=== PATIENT | female | born 2000 | race African-American/Black ===

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

== ENCOUNTER 2025-07-06 10:29 | Outpatient (CLI) | payer OTHER, SELFPAY ==
--- OUTSIDE RECORDS SUMMARY | 2025-07-06 12:16 | XMS_ITS | Clinical Summary ---
Author Organization [facility] [employer] Address [address] [place] [address] Care Team Providers Care Adaptive Physical Educator Name Role Phone Abi Valle MD Unavailable [phone] Siobhan Stanley MD Primary Care Provider [phone] Kelli Alcantara MD Unavailable [phone] Source Comments [facility] [employer],non-owned Affiliates and Associated Physician Practices is amultiple site organization consisting of ambulatory clinics and hospital sitesin [place], [place], [place] and [place]. This disclosure is being madepursuant to the Care Everywhere program and may not contain all information available regarding this patient. Last updated 18.[facility] [employer] Allergies No known active allergies Medications * Be aware that medications may not be up to date on this document. Alwaysverify current medications with the patient. acetaminophen-co deine (TYLENOL #3) 300-30 MG tablet Take 1 Tab by mouth every 6 hours as needed for Pain 20 Tab 0 07/12/2015 Active oxyCODONE-acetam inophen (PERCOCET) 5-325 MG tablet Take 1 (one) tablet by mouth every 6 hours as needed for Pain 10 tablet 02/27/2021 Active Active Problems Patient Care Coordination No te Formatting of this note migh t be different from the original. Primary Care Provider: Roxy Boyle MD [address] [place] [address] Problem Noted Date Diagnosed Date Left breast mass 02/07/2021 Dislocation of lacrimal gland 07/12/2015 Family History Medical History Relation Name Comments Cancer - Breast Maternal Grandmother Cancer - Ovarian Maternal Grandmother Anesthesia Reaction Neg Hx Relation Name Status Comments Maternal Grandmother Alive Social History Tobacco Use Types Packs/Day Years Used Date Smoking Tobacco: Never Smokeless Tobacco: Never Alcohol Use Standard Drinks/Week Comments No 0 (1 standard drink = 0.6 oz pur e alcohol) Comments No Sex and Gender Information Value Date Recorded Sex Assigned at Not on file Legal Sex Female 11:39 AM CDT Gender Identity Not on file Sexual Orientation Not on file Last Filed Vital Signs Vital Sign Reading Time Taken Comments Blood Pressure 119/69 03/21/2021 10:22 AM CDT Pulse 75 03/21/2021 10:22 AM CDT Temperature 36.4 C (97.5 F) 02/27/2021 11:58 AM CDT Respiratory Rate 23 02/27/2021 12:30 PM CDT Oxygen Saturation 100% 02/27/2021 12:30 PM CDT Inhaled Oxygen Concentration - - Weight 72.6 kg (160 lb) 03/21/2021 10:22 AM CDT Height 167.6 cm (5' 6) 03/21/2021 10:22 AM CDT Body Mass Index 25.82 03/21/2021 10:22 AM CDT Plan of Treatment Health Maintenance Due Date Last Done Comments HIV SCREENING 2016 HPV VACCINE (1 - 3-dose series) 2016 CHLAMYDIA/GONORRHEA SCREENING 2017 HEPATITIS C SCREENING 03/27/2019 DTAP/TDAP/TD VACCINES (1 - Tdap) 2020 HEPATITIS B VACCINE (1 of 3 - 19+ 3-dose series) 2020 DEPRESSION SCREENING 09/23/2024 COVID-19 VACCINE (1 - 2023-2 5 season) 2025 INFLUENZA VACCINE (#1) 2025 ZOSTER VACCINE (1 of 2) 2051 HIB VACCINE Aged Out No longer eligi ble based on patient's age to complete this topic MENINGOCOCCAL (Group B) VACC INE SHARED DECISION-MAKING Aged Out No longer eligibl e based on patient's age to complete this topic MENINGOCOCCAL GROUPS A/C/Y/W VACCINE Aged Out No longer eligible b ased on patient's age to complete this topic PNEUMOCOCCAL VACCINE Aged Out No long er eligible based on patient's age to complete this topic Additional Health Concerns Infection Onset Date Last 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 Care Teams Adaptive Physical Educator Relationship Specialty Start Date End Date Siobhan Stanley MD [address] [facility] [address] [address] [place] [address] PCP - General Pediatrics 03/21/21 Abi Valle MD Real Estate Salesperson Obstetrics and Gynecology 02/16/21 Kelli Alcantara MD [address] [place] [address] [place] [id number] Surgeon Surgical Oncology 03/21/21
--- OUTSIDE RECORDS SUMMARY | 2025-07-06 12:16 | XMS_ITS | Clinical Summary ---
Author Organization [facility] Address [address] [place] [address] Care Team Providers Care Remnant Sorter Name Role Phone Siobhan Stanley MD Primary Care Provider [phone] Allergies No known active allergies Medications * This document contains information received from the source organization and may not represent a complete record from that organization. 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 Immunizations Immunization Administration Dates Next Due COVID-19 mRNA (WorldAPP) 0.3 m L (30 mcg) vaccine (12 years and up) 08/03/2024 Influenza, Trivalent, Cell C ulture-based MDCK, Preservative Free, Antibiotic Free, Intramuscular 08/03/2024 Surgical History Surgery Date Site/Laterality Comments EYE SURGERY Family History Medical History Relation Name Comments No Known Problems Father No Known Problems Mother Relation Name Status Comments Father Mother Social History Tobacco Use Types Packs/Day Years Used Date Smoking Tobacco: Never Smokeless Tobacco: Never Personal Safety Answer Date Recorded Have you ever been in or are you currently in a harmful physical or emotional relationship or is someone making you feel afraid or unsafe? Denies 09/03/2024 Comments Unknown Sex and Gender Information Value Date Recorded Sex Assigned at Not on file Legal Sex Female 3:34 AM SUBSCRIPTION CLERK Gender Identity Female 06/04/2018 7:01 PM CDT Sexual Orientation Not on file Obstetrics History Last Filed Vital Signs Vital Sign Reading Time Taken Comments Blood Pressure 129/88 09/03/2024 6:03 PM SUBSCRIPTION CLERK Pulse 78 09/03/2024 6:03 PM SUBSCRIPTION CLERK Temperature 37.1 C (98.8 F) 09/03/2024 6:03 PM SUBSCRIPTION CLERK Respiratory Rate 18 09/03/2024 6:03 PM SUBSCRIPTION CLERK Oxygen Saturation 100% 09/03/2024 6:03 PM SUBSCRIPTION CLERK Inhaled Oxygen Concentration - - Weight 59.9 kg (132 lb) 09/03/2024 6:03 PM SUBSCRIPTION CLERK Height 165.1 cm (5' 5) 09/03/2024 6:03 PM SUBSCRIPTION CLERK Body Mass Index 21.97 09/03/2024 6:03 PM SUBSCRIPTION CLERK Plan of Treatment Health Maintenance Due Date Last Done Comments Cervical Cancer Screening 2001 Depression Screening 2001 Hepatitis C Screening 2001 Regular Well Visit/Exam 18-64 2019 Influenza Vaccine (#1) 2025 , 07/25/2017, 10/24/2011, Additional history exists DTaP/Tdap/Td Vaccine (8 - Td or Tdap) 04/15/2034 04/15/2024, 04/15/2012, 05/17/2006, Additional history exists Hepatitis B Screening Completed 05/18/2002 , 2001, 2001 Pneumococcal vaccine <65 Completed 002, 2001, 2001, Additional history exists Varicella Vaccines Completed 04/15/2012, 05/18/2002 HPV Vaccines Completed 12/02/2017, 10/2016, 05/31/2017 Covid-19 Vaccine Completed 08/03/2024, , 02/03/2021, Additional history exists Insurance PPO [facility] Address: [address] [address] [place] [address] [facility] H[facility]/PPO [place] [address] Care Teams Remnant Sorter Relationship Specialty Start Date End Date Siobhan Stanley MD [address] [address] PCP - General Pediatrics 06/04/18
--- OUTSIDE RECORDS SUMMARY | 2025-07-06 12:16 | XMS_ITS | Patient Health Record ---
Author Organization [facility] Address [address] [facility] [address] [place] [address] Care Team Providers Care It Service Manager Name Role Phone Martha Yue Unavailable [phone] Rashmi Florence MD Unavailable Unavailable Reason For Referral Reason Never feels well res edel even after 8 hours Feels fatigued throughout the day Family history of narcolepsy Diagnosis 1 Major depressive dis order, single episode, severe without psychotic features (F32.2) Referral Organization [facility] [employer] [facility] Referring Provider First Name Yue Referring Provider Last Name Martha Referred Provider Specialty Sleep Medici ne Referral Priority Routine Social History Tobacco Use: Social History Observation Description Date Details (start date - stop date) Never Smoker NA - NA Sex Assigned At : Social History Observation Description Sex Assigned At Female Social History Miscellaneous: Social Info Question Answer Notes Advance Care Planning Are you your own decision-maker Yes Do you have Power of [facility] Operator for Health or [facility]? No Safety issues: Are there any firearms in the house? No Social History Social Info Question Answer Notes Household: Marital Status: Single Number of Adults in household: 2 Number of Children in Household: 0 Level of Education: Finished College Drug/Alcohol: Social Info Question Answer Notes Drugs Have you used drugs other than those for medical reasons in the past 12 months? Yes Methamphetamine? No Crack? No LSD? No Ecstacy? No Prescription opiates? No Marijuana? Yes Ketamine? No PCP? No Is there a minor (18 years or younger) at risk at home? No Are you still using? Yes Do you want treatment? No AUDIT-C (Standard) Did you have a drink containing alc ohol in the past year? No How often did you have six or more drinks on one occasion in the past year? Never (0 point) How many drinks did you have on a typical day when you were drinking in the past year? 1 or 2 drinks (0 point) How often did you have a drink containing alcohol in the past year? 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.2) Active confirmed Problem Mild recurrent major depression (96698101) Major depressive disorder, recurrent, mild (F33.0) Active confirmed Problem Generalized anxiety disorder (39802982) Generalized anxiety disorder (F41.1) Active confirmed Encounters Encounter Location Date Provider Diagnosis [facility] [address] [place] [address] 11/04/2024 Yue Hinderliter Generalized anxiety disorder F41.1 and Major depressive disorder, single episode, severe without psychotic features F32.2 [facility] [address] [place] [address] 11/11/2024 Yue Hinderliter Major depressive disorder, single episode, severe without psychotic features F32.2 and Generalized anxiety disorder F41.1 [facility] [address] [place] [address] 11/18/2024 Yue Hinderliter Major depressive disorder, single episode, severe without psychotic features F32.2 and Generalized anxiety disorder F41.1 [facility] [address] [place] [address] 11/27/2024 Yue Hinderliter Major depressive disorder, single episode, severe without psychotic features F32.2 and Generalized anxiety disorder F41.1 [facility] [address] [place] [address] 12/08/2024 Yue Hinderliter Major depressive disorder, single episode, severe without psychotic features F32.2 ; Generalized anxiety disorder F41.1 and Encounter for screening for depression Z13.31 [facility], [facility] [address] [place] [address] 12/17/2024 Yue Hinderliter Major depressive disorder, single episode, severe without psychotic features F32.2 ; Generalized anxiety disorder F41.1 and Encounter for screening for depression Z13.31 [facility], [facility] [address] [place] [address] 12/25/2024 Yue Hinderliter Major depressive disorder, single episode, severe without psychotic features F32.2 ; Generalized anxiety disorder F41.1 and Encounter for screening for depression Z13.31 [facility], [facility] [address] [place] [address] 01/08/2025 Yue Hinderliter Major depressive disorder, single episode, severe without psychotic features F32.2 ; Generalized anxiety disorder F41.1 and Encounter for screening for depression Z13.31 [facility] [address] [place] [address] 01/22/2025 Yue Hinderliter Major depressive disorder, single episode, severe without psychotic features F32.2 ; Generalized anxiety disorder F41.1 and Encounter for screening for depression Z13.31 [id number] [address] [place] [address] 02/12/2025 Yue Hinderliter Major depressive disorder, single episode, severe without psychotic features F32.2 ; Generalized anxiety disorder F41.1 and Encounter for screening for depression Z13.31 [employer], [facility] [address] [place] [address] 04/07/2025 Yue Hinderliter Major depressive disorder, single episode, severe without psychotic features F32.2 ; Generalized anxiety disorder F41.1 and Encounter for screening for depression Z13.31 [employer], [employer] [place] [address] 05/06/2025 Yue Hinderliter Major depressive disorder, recurrent, mild F33.0 ; Generalized anxiety disorder F41.1 and Cannabis use, unspecified, uncomplicated F12.90 [facility], [facility] [address] [place] [address] 06/18/2025 Yue Addisonmai Generalized anxiety disorder F41.1 and Major depressive disorder, recurrent, mild F33.0 [facility] [address] [place] [address] 06/09/2025 Yuebobby Addisonmai [facility] [address] [place] [address] 05/06/2025 Yue Azaelmai [facility] [address] [place] [address] 05/21/2025 Yuebobby Addisonmai [facility] [address] [place] [address] 06/18/2025 Yuebobby Addisonmai Assessments Encounter Date Diagnosis (ICD Code) Assessment Notes Treatment Notes Treatment Clinical Notes Section Notes 11/04/2024 Major depressive disorder, single episode, severe without psychotic features (ICD-10 - F32.2) Marital Status: Single Living Arrangement: roommate, coexist Support System: mom and dad, high school friends still in the area, college friends that are further away, some extended family, siblings Highest Level of Education: Completed college Employment Status: Research orthodontic technician assistant History: Denied Legal History: Denied Family History of MH/ORIN: ADHD. Narcolepsy Physical Medical Conditions: Denied Spiritual Beliefs: confusing but yes. I was raised Caodaism but more so spiritual now. Suicidal Ideation/Self Harm: Denied Homicidal Ideation: Denied Access to means (firearms etc): Denied Chief Complaint: I've been going through a lot of things recently. A lot of things happening in different relationships. Mom is in middle of divorce with ajay. Anxiety: Possibly panic attacks. Uncontrollably crying, feeling stuck, racing heart, tightness in chest, difficulty breathing, feeling like head is going to explode, headaches after the fact, lightheadedness. Racing thoughts. Ruminating thoughts. Annoyed, snippy with others, not anger. Typically does not engage in impulsive behaviors however she noted that recently she impulsively had a sexual encounter with a stranger. She noted that he removed the condom without her consent and is now scheduled for and STI testing. Depression: Feels abandoned or not cared for by people she cares for. Difficulty letting new people in. Trying to date but also keeping self at a distance. Isolating self from others. Feels she cares too much about people. Low energy and low motivation. Obsessions/Compulsi ons: Denied Psychosis: Denied Sleep: Used to sleep a lot, has had a more consistent schedule with her job. Waking up throughout the night, typically around 1-2am consistently. Can fall back asleep quickly. History of nightmares, none in the past month. Average of 8 hours of sleep a night. Has never felt well rested. Never had a sleep study done. Appetite: On and off. Was having stomach issues at the end of 2023. Lost 30 pounds in short period of time. Now feels her appetite is better. Trauma: Substance Use (type, last use, amount, frequency, withdrawal symptoms): Some alcohol. Marijuana, usually smoking, edibles rarely. Smoking 4 times a week usually only at night. Gambling/Other Addictive Behaviors: Denied ADLs (Hygiene, Chores, Cooking, Shopping): Feels exhausted and just wants to sit and do nothing. Things get put off. Interests/Skills/Ho bbies: Used to read a lot of fiction, played sports. Currently watches TV shows, spending time with friends. Scroll on [employer] a lot. Goal(s) for Therapy: To just feel better. Coping strategies to not feel so low. Assessment and Plan: Anxiety and Panic Attacks Teach and practice coping strategies for anxiety, including TIP (Temperature, Intense exercise, Paced breathing, and Paired muscle relaxation). Encourage the patient to practice these skills for 2 to 5 minutes daily. Monitor progress in weekly sessions and adjust treatment as needed. Depression and Low Motivation Work on increasing positive emotions and motivation through cognitive-behaviora l therapy techniques. Assess the need for medication in future sessions if symptoms persist. Sleep Disturbance Monitor sleep patterns and consider a sleep study if the issue persists. Discuss sleep hygiene and relaxation techniques to improve sleep quality. Attachment and Relationship Issues Explore attachment styles and work on developing a more secure attachment through therapy. Address the impact of past relationships and family dynamics on the patient's attachment style. Substance Use Assess the impact of marijuana use on the patient's mental health and discuss potential risks and benefits. Monitor substance use during therapy sessions. Coping with Life Stressors Utilize cognitive-behaviora l therapy techniques to help the patient develop healthy coping strategies for managing stress. Encourage open communication about stressors during therapy sessions. Sexual Health and Boundaries Address healthy sexuality, consent, and boundaries in relationships. Support the patient in establishing and maintaining healthy boundaries in future relationships. Follow up about results of and STI testing. Follow-up: Schedule weekly therapy sessions to monitor progress, discuss coping strategies, and address any new concerns or issues that arise. Adjust treatment plan as needed based on the patient's progress and needs. 11/04/2024 Generalized anxiety disorder (ICD-10 - F41.1) Marital Status: Single Living Arrangement: roommate, coexist Support System: mom and dad, high school friends still in the area, college friends that are further away, some extended family, siblings Highest Level of Education: Completed college Employment Status: Research orthodontic technician assistant History: Denied Legal History: Denied Family History of MH/ORIN: ADHD. Narcolepsy Physical Medical Conditions: Denied Spiritual Beliefs: confusing but yes. I was raised Caodaism but more so spiritual now. Suicidal Ideation/Self Harm: Denied Homicidal Ideation: Denied Access to means (firearms etc): Denied Chief Complaint: I've been going through a lot of things recently. A lot of things happening in different relationships. Mom is in middle of divorce with ajay. Anxiety: Possibly panic attacks. Uncontrollably crying, feeling stuck, racing heart, tightness in chest, difficulty breathing, feeling like head is going to explode, headaches after the fact, lightheadedness. Racing thoughts. Ruminating thoughts. Annoyed, snippy with others, not anger. Typically does not engage in impulsive behaviors however she noted that recently she impulsively had a sexual encounter with a stranger. She noted that he removed the condom without her consent and is now scheduled for and STI testing. Depression: Feels abandoned or not cared for by people she cares for. Difficulty letting new people in. Trying to date but also keeping self at a distance. Isolating self from others. Feels she cares too much about people. Low energy and low motivation. Obsessions/Compulsi ons: Denied Psychosis: Denied Sleep: Used to sleep a lot, has had a more consistent schedule with her job. Waking up throughout the night, typically around 1-2am consistently. Can fall back asleep quickly. History of nightmares, none in the past month. Average of 8 hours of sleep a night. Has never felt well rested. Never had a sleep study done. Appetite: On and off. Was having stomach issues at the end of 2023. Lost 30 pounds in short period of time. Now feels her appetite is better. Trauma: Substance Use (type, last use, amount, frequency, withdrawal symptoms): Some alcohol. Marijuana, usually smoking, edibles rarely. Smoking 4 times a week usually only at night. Gambling/Other Addictive Behaviors: Denied ADLs (Hygiene, Chores, Cooking, Shopping): Feels exhausted and just wants to sit and do nothing. Things get put off. Interests/Skills/Ho bbies: Used to read a lot of fiction, played sports. Currently watches TV shows, spending time with friends. Scroll on [employer] a lot. Goal(s) for Therapy: To just feel better. Coping strategies to not feel so low. Assessment and Plan: Anxiety and Panic Attacks Teach and practice coping strategies for anxiety, including TIP (Temperature, Intense exercise, Paced breathing, and Paired muscle relaxation). Encourage the patient to practice these skills for 2 to 5 minutes daily. Monitor progress in weekly sessions and adjust treatment as needed. Depression and Low Motivation Work on increasing positive emotions and motivation through cognitive-behaviora l therapy techniques. Assess the need for medication in future sessions if symptoms persist. Sleep Disturbance Monitor sleep patterns and consider a sleep study if the issue persists. Discuss sleep hygiene and relaxation techniques to improve sleep quality. Attachment and Relationship Issues Explore attachment styles and work on developing a more secure attachment through therapy. Address the impact of past relationships and family dynamics on the patient's attachment style. Substance Use Assess the impact of marijuana use on the patient's mental health and discuss potential risks and benefits. Monitor substance use during therapy sessions. Coping with Life Stressors Utilize cognitive-behaviora l therapy techniques to help the patient develop healthy coping strategies for managing stress. Encourage open communication about stressors during therapy sessions. Sexual Health and Boundaries Address healthy sexuality, consent, and boundaries in relationships. Support the patient in establishing and maintaining healthy boundaries in future relationships. Follow up about results of and STI testing. Follow-up: Schedule weekly therapy sessions to monitor progress, discuss coping strategies, and address any new concerns or issues that arise. Adjust treatment plan as needed based on the patient's progress and needs. 11/11/2024 Major depressive disorder, single episode, severe without psychotic features (ICD-10 - F32.2) Assessment and Plan: Anxiety and Panic Attacks The patient experienced an anxiety attack following distressing news, marking the first occurrence in several months. The patient has been recommended anxiety medication (potentially sertraline) by their primary care physician. Plan: a. Encourage the patient to commence the prescribed anxiety medication and observe its impact. b. Persist in identifying and practicing coping mechanisms, including mindfulness exercises (e.g., leaves on a stream) and acceptance strategies. c. Arrange consistent follow-up meetings to assess progress and modify the treatment plan as necessary. Relationship and Family Stressors The patient is navigating the aftermath of a recent breakup and ongoing familial challenges, notably a strained relationship with their stepfather and worries regarding their siblings. Plan: a. Support the patient in processing their feelings and thoughts concerning these stressors during therapy sessions. b. Aid the patient in establishing healthy boundaries and communication methods with family members. c. Examine the patient's support network and motivate them to seek additional support from friends and family. Career Uncertainty The patient expresses dissatisfaction with their current employment and is contemplating various healthcare career options, including nursing or becoming a physician's orthodontic technician assistant. Plan: a. Guide the patient in reflecting on their values, interests, and career aspirations. b. Encourage the patient to investigate diverse career paths and collect information on requirements, application processes, and job prospects. c. Assist the patient in formulating a strategy to achieve their career objectives, considering potential obstacles such as housing and achieving a work-life balance. Coping with Adult Life Stressors The patient feels overwhelmed by adult life responsibilities and challenges, including achieving financial stability and managing multiple stressors. Plan: a. Assist the patient in identifying and prioritizing their stressors and devising a strategy to tackle them. b. Instruct the patient in stress management techniques, including time management, problem-solving, and self-care practices. c. Encourage the patient to strive for a balanced work-life dynamic and to seek support from friends, family, and professionals when necessary. 11/11/2024 Generalized anxiety disorder (ICD-10 - F41.1) Assessment and Plan: Anxiety and Panic Attacks The patient experienced an anxiety attack following distressing news, marking the first occurrence in several months. The patient has been recommended anxiety medication (potentially sertraline) by their primary care physician. Plan: a. Encourage the patient to commence the prescribed anxiety medication and observe its impact. b. Persist in identifying and practicing coping mechanisms, including mindfulness exercises (e.g., leaves on a stream) and acceptance strategies. c. Arrange consistent follow-up meetings to assess progress and modify the treatment plan as necessary. Relationship and Family Stressors The patient is navigating the aftermath of a recent breakup and ongoing familial challenges, notably a strained relationship with their stepfather and worries regarding their siblings. Plan: a. Support the patient in processing their feelings and thoughts concerning these stressors during therapy sessions. b. Aid the patient in establishing healthy boundaries and communication methods with family members. c. Examine the patient's support network and motivate them to seek additional support from friends and family. Career Uncertainty The patient expresses dissatisfaction with their current employment and is contemplating various healthcare career options, including nursing or becoming a physician's orthodontic technician assistant. Plan: a. Guide the patient in reflecting on their values, interests, and career aspirations. b. Encourage the patient to investigate diverse career paths and collect information on requirements, application processes, and job prospects. c. Assist the patient in formulating a strategy to achieve their career objectives, considering potential obstacles such as housing and achieving a work-life balance. Coping with Adult Life Stressors The patient feels overwhelmed by adult life responsibilities and challenges, including achieving financial stability and managing multiple stressors. Plan: a. Assist the patient in identifying and prioritizing their stressors and devising a strategy to tackle them. b. Instruct the patient in stress management techniques, including time management, problem-solving, and self-care practices. c. Encourage the patient to strive for a balanced work-life dynamic and to seek support from friends, family, and professionals when necessary. 11/18/2024 Major depressive disorder, single episode, severe without psychotic features (ICD-10 - F32.2) Assessment and Plan: Housing and Financial Stress The patient is experiencing stress related to their housing situation, including the ending of their lease and potential future living arrangements. Concerns are also present regarding the financial aspects of housing and utilities. Plan: Encourage the patient to explore various housing options and consider the advantages and disadvantages of each. Suggest discussing utility payments with their roommate to reach a mutual understanding and agreement. Recommend considering seeking financial advice or assistance as needed. Academic and Career Concerns The patient expresses uncertainty about pursuing a PA program, with worries about their GPA and the application process. Plan: Encourage the patient to gather more information about PA programs and their specific requirements. Suggest reaching out to academic advisors or mentors for guidance and support. Recommend exploring alternative career paths if the PA program seems unfeasible. Relationship and Breakup Stress The patient is dealing with emotional distress following a recent breakup. Plan: Encourage the patient to focus on self-care and allow themselves time to grieve the end of the relationship. Suggest taking a pause from connecting with new people to concentrate on healing. Recommend continuing to challenge cognitive distortions and seeking support from friends and family. Coping Strategies The patient has been utilizing breathing exercises and distractions to manage stress and emotional pain. Plan: Encourage the continuation of breathing exercises and the practice of other healthy coping strategies. Suggest exploring additional coping techniques, such as journaling or mindfulness meditation. Recommend monitoring the effectiveness of these coping strategies and making adjustments as necessary. Follow-up: Schedule a follow-up appointment for the patient in one week, with the option for a virtual or in-person meeting based on the patient's preference and availability. Continue monitoring the patient's progress and adjust the treatment plan as needed. 11/18/2024 Generalized anxiety disorder (ICD-10 - F41.1) Assessment and Plan: Housing and Financial Stress The patient is experiencing stress related to their housing situation, including the ending of their lease and potential future living arrangements. Concerns are also present regarding the financial aspects of housing and utilities. Plan: Encourage the patient to explore various housing options and consider the advantages and disadvantages of each. Suggest discussing utility payments with their roommate to reach a mutual understanding and agreement. Recommend considering seeking financial advice or assistance as needed. Academic and Career Concerns The patient expresses uncertainty about pursuing a PA program, with worries about their GPA and the application process. Plan: Encourage the patient to gather more information about PA programs and their specific requirements. Suggest reaching out to academic advisors or mentors for guidance and support. Recommend exploring alternative career paths if the PA program seems unfeasible. Relationship and Breakup Stress The patient is dealing with emotional distress following a recent breakup. Plan: Encourage the patient to focus on self-care and allow themselves time to grieve the end of the relationship. Suggest taking a pause from connecting with new people to concentrate on healing. Recommend continuing to challenge cognitive distortions and seeking support from friends and family. Coping Strategies The patient has been utilizing breathing exercises and distractions to manage stress and emotional pain. Plan: Encourage the continuation of breathing exercises and the practice of other healthy coping strategies. Suggest exploring additional coping techniques, such as journaling or mindfulness meditation. Recommend monitoring the effectiveness of these coping strategies and making adjustments as necessary. Follow-up: Schedule a follow-up appointment for the patient in one week, with the option for a virtual or in-person meeting based on the patient's preference and availability. Continue monitoring the patient's progress and adjust the treatment plan as needed. 11/27/2024 Major depressive disorder, single episode, severe without psychotic features (ICD-10 - F32.2) Assessment and Plan: Anxiety related to housing and financial stress Continue Cognitive Behavioral Therapy to address anxiety and develop coping strategies. Encourage the patient to break down goals into smaller, manageable steps. Recommend setting boundaries for social activities to prevent exhaustion. Family conflict and stress due to parents' divorce Continue to provide a safe space for the patient to discuss family issues and emotions. Explore the impact of family dynamics on the patient's mental health and relationships. Encourage open communication with family members and setting healthy boundaries. Difficulty in social interactions and maintaining friendships Encourage the patient to engage in social activities that are enjoyable and not overly draining. Discuss the importance of setting boundaries and expectations in friendships. Work on building self-esteem and confidence in social situations. Uncertainty about career and future goals Assist the patient in exploring potential career paths and interests. Encourage the patient to focus on short-term goals and be patient with the process. Discuss the importance of self-care and balance in achieving long-term stability. Relationship concerns and fear of rejection Continue to explore the patient's feelings and experiences in romantic relationships. Work on building self-esteem and resilience in the face of rejection. Encourage the patient to take time to process emotions and develop healthy relationship skills. 11/27/2024 Generalized anxiety disorder (ICD-10 - F41.1) Assessment and Plan: Anxiety related to housing and financial stress Continue Cognitive Behavioral Therapy to address anxiety and develop coping strategies. Encourage the patient to break down goals into smaller, manageable steps. Recommend setting boundaries for social activities to prevent exhaustion. Family conflict and stress due to parents' divorce Continue to provide a safe space for the patient to discuss family issues and emotions. Explore the impact of family dynamics on the patient's mental health and relationships. Encourage open communication with family members and setting healthy boundaries. Difficulty in social interactions and maintaining friendships Encourage the patient to engage in social activities that are enjoyable and not overly draining. Discuss the importance of setting boundaries and expectations in friendships. Work on building self-esteem and confidence in social situations. Uncertainty about career and future goals Assist the patient in exploring potential career paths and interests. Encourage the patient to focus on short-term goals and be patient with the process. Discuss the importance of self-care and balance in achieving long-term stability. Relationship concerns and fear of rejection Continue to explore the patient's feelings and experiences in romantic relationships. Work on building self-esteem and resilience in the face of rejection. Encourage the patient to take time to process emotions and develop healthy relationship skills. 12/08/2024 Major depressive disorder, single episode, severe without psychotic features (ICD-10 - F32.2) 1. Anxiety and stress related to school enrollment and work-life balance Assessment: - Patient expresses significant anxiety and stress surrounding desire to enroll in school and manage current work schedule - Reports feeling tired of climbing and describes a sense of stagnation in personal growth - Anxiety exacerbated by prolonged waiting period for school enrollment - Reports difficulty with current work schedule, describing it as exhausting and repetitive - Expresses desire for more flexibility or different schedule, indicating current 9-to-5 routine impacts energy levels Plan: - Explore strategies for managing anxiety related to school enrollment process - Discuss time management techniques to improve work-life balance - Encourage patient to continue pursuing school enrollment while setting realistic expectations - Explore potential career options or work arrangements that align better with patient's needs - Recommend sleep study follow-up to address potential sleep-related issues 2. Relationship concerns and emotional processing post-breakup Assessment: - Experiencing ongoing emotional distress following recent breakup - Reports conflicting feelings, including missing ex-partner while recognizing relationship's negative aspects - Describes intense emotional reaction to receiving text message from ex-partner - Expresses difficulty ending relationships, even when recognized as unhealthy - Reports feeling overwhelmed by prospect of dating again Plan: - Continue to process emotions related to the recent breakup - Explore and challenge patterns of relationship dependency - Develop strategies for setting and maintaining healthy boundaries in relationships - Discuss healthy approaches to dating and building new relationships - Encourage self-reflection on personal values and relationship goals 3. Family conflict and support system concerns Assessment: - Reports ongoing family conflict, particularly involving stepfather and younger siblings - Describes stepfather's behavior as manipulative and potentially narcissistic - Reports history of growing up in restrictive jehovah's witness environment - Expresses frustration with brother's lack of understanding regarding situation with stepfather Plan: - Explore strategies for setting boundaries with family members - Discuss ways to support siblings while maintaining own emotional well-being - Encourage development of support network outside of family - Address potential impact of jehovah's witness upbringing on current relationship patterns - Consider family therapy or mediation options if appropriate and desired Follow-up: - Schedule follow-up appointment to monitor progress and continue working on identified issues 12/08/2024 Generalized anxiety disorder (ICD-10 - F41.1) 1. Anxiety and stress related to school enrollment and work-life balance Assessment: - Patient expresses significant anxiety and stress surrounding desire to enroll in school and manage current work schedule - Reports feeling tired of climbing and describes a sense of stagnation in personal growth - Anxiety exacerbated by prolonged waiting period for school enrollment - Reports difficulty with current work schedule, describing it as exhausting and repetitive - Expresses desire for more flexibility or different schedule, indicating current 9-to-5 routine impacts energy levels Plan: - Explore strategies for managing anxiety related to school enrollment process - Discuss time management techniques to improve work-life balance - Encourage patient to continue pursuing school enrollment while setting realistic expectations - Explore potential career options or work arrangements that align better with patient's needs - Recommend sleep study follow-up to address potential sleep-related issues 2. Relationship concerns and emotional processing post-breakup Assessment: - Experiencing ongoing emotional distress following recent breakup - Reports conflicting feelings, including missing ex-partner while recognizing relationship's negative aspects - Describes intense emotional reaction to receiving text message from ex-partner - Expresses difficulty ending relationships, even when recognized as unhealthy - Reports feeling overwhelmed by prospect of dating again Plan: - Continue to process emotions related to the recent breakup - Explore and challenge patterns of relationship dependency - Develop strategies for setting and maintaining healthy boundaries in relationships - Discuss healthy approaches to dating and building new relationships - Encourage self-reflection on personal values and relationship goals 3. Family conflict and support system concerns Assessment: - Reports ongoing family conflict, particularly involving stepfather and younger siblings - Describes stepfather's behavior as manipulative and potentially narcissistic - Reports history of growing up in restrictive jehovah's witness environment - Expresses frustration with brother's lack of understanding regarding situation with stepfather Plan: - Explore strategies for setting boundaries with family members - Discuss ways to support siblings while maintaining own emotional well-being - Encourage development of support network outside of family - Address potential impact of jehovah's witness upbringing on current relationship patterns - Consider family therapy or mediation options if appropriate and desired Follow-up: - Schedule follow-up appointment to monitor progress and continue working on identified issues 12/17/2024 Major depressive disorder, single episode, severe without psychotic features (ICD-10 - F32.2) 1. Anxiety related to life transitions Assessment: - Reports experiencing anxiety related to multiple life transitions, including housing changes, financial planning, and educational pursuits - Expresses feeling overwhelmed by the numerous steps required to address each area of concern - Notes recent improvement in outlook, feeling significantly more optimistic in the past few days - Demonstrates insight into emotional state and has taken proactive steps by meeting with financial advisors and academic counselors Plan: - Continue to encourage breaking down overwhelming tasks into manageable categories - Reinforce positive coping strategies for managing anxiety during transitions - Discuss strategies for maintaining optimism while acknowledging the complexity of current life changes - Follow up on progress with housing, financial, and educational plans in next session 2. Interpersonal challenges and emotional regulation Assessment: - Exhibits difficulty with emotional regulation, particularly in romantic relationships - Reports crying frequently during serious conversations with potential partner - Expresses concern about appearing manipulative unintentionally - Demonstrates awareness of tendency to distance self from romantic interests as a coping mechanism - Notes challenges in articulating thoughts during confrontations, often becoming quiet or apologetic Plan: - Explore and practice effective communication strategies for expressing emotions in relationships - Discuss healthy boundaries and coping mechanisms for managing emotional intensity in romantic situations - Encourage use of cope ahead skill to address anxiety about potential relationship scenarios - Consider introducing relationship-buildi ng tools to facilitate communication and connection 3. Self-doubt and fear of commitment Assessment: - Expresses self-doubt about ability to be a good partner in a relationship, citing lack of experience - Reports anxiety about introducing partners to family and managing expectations of committed relationship - Indicates fear of getting hurt, stating I feel like people don't actually last - Demonstrates desire to overcome fears, recognizing potential regret in not pursuing relationship Plan: - Explore beliefs about relationships and identify any cognitive distortions - Develop strategies for building self-confidence in romantic relationships - Discuss realistic expectations for relationship development and pacing - Encourage gradual exposure to relationship experiences to build comfort and confidence 12/17/2024 Generalized anxiety disorder (ICD-10 - F41.1) 1. Anxiety related to life transitions Assessment: - Reports experiencing anxiety related to multiple life transitions, including housing changes, financial planning, and educational pursuits - Expresses feeling overwhelmed by the numerous steps required to address each area of concern - Notes recent improvement in outlook, feeling significantly more optimistic in the past few days - Demonstrates insight into emotional state and has taken proactive steps by meeting with financial advisors and academic counselors Plan: - Continue to encourage breaking down overwhelming tasks into manageable categories - Reinforce positive coping strategies for managing anxiety during transitions - Discuss strategies for maintaining optimism while acknowledging the complexity of current life changes - Follow up on progress with housing, financial, and educational plans in next session 2. Interpersonal challenges and emotional regulation Assessment: - Exhibits difficulty with emotional regulation, particularly in romantic relationships - Reports crying frequently during serious conversations with potential partner - Expresses concern about appearing manipulative unintentionally - Demonstrates awareness of tendency to distance self from romantic interests as a coping mechanism - Notes challenges in articulating thoughts during confrontations, often becoming quiet or apologetic Plan: - Explore and practice effective communication strategies for expressing emotions in relationships - Discuss healthy boundaries and coping mechanisms for managing emotional intensity in romantic situations - Encourage use of cope ahead skill to address anxiety about potential relationship scenarios - Consider introducing relationship-buildi ng tools to facilitate communication and connection 3. Self-doubt and fear of commitment Assessment: - Expresses self-doubt about ability to be a good partner in a relationship, citing lack of experience - Reports anxiety about introducing partners to family and managing expectations of committed relationship - Indicates fear of getting hurt, stating I feel like people don't actually last - Demonstrates desire to overcome fears, recognizing potential regret in not pursuing relationship Plan: - Explore beliefs about relationships and identify any cognitive distortions - Develop strategies for building self-confidence in romantic relationships - Discuss realistic expectations for relationship development and pacing - Encourage gradual exposure to relationship experiences to build comfort and confidence 12/25/2024 Major depressive disorder, single episode, severe without psychotic features (ICD-10 - F32.2) 1. Improved mood and stability - Patient reports significant improvement in mood and overall stability due to concrete steps taken towards educational goals, including enrolling in classes and planning for future coursework. - Patient expresses feeling very good recently and notes a strong shift in mindset. - Contributing factors include increased engagement at work, reduced stress about daily tasks, and a more accepting attitude towards life's uncertainties. - Patient demonstrates improved coping skills and a more balanced perspective on life events. 2. Treatment Plan for Mood and Stability - Encourage continued engagement in educational pursuits and work activities - Practice savoring positive experiences using all five senses to reinforce and maintain improved mood - Transition to bi-weekly therapy sessions to support ongoing progress - Schedule next appointment in two weeks 3. Residual anxiety management - Patient reports persistent thoughts about potential negative events disrupting progress, though notes these thoughts are less distressing than in the past - Demonstrates increased resilience and ability to manage these thoughts without significant emotional distress - Continue to monitor anxiety symptoms and their impact on daily functioning - Reinforce use of cognitive-behaviora l techniques to manage anxious thoughts - Explore and strengthen coping strategies for dealing with uncertainty 4. Interpersonal relationships - Reports renewed contact with a significant other and expresses a balanced approach to this relationship - Demonstrates improved self-awareness and emotional regulation - Notes comfort with the current state of the relationship regardless of outcome - Encourage continued self-reflection and boundary-setting in relationships - Support patient in maintaining a balanced perspective on relationship outcomes Follow-up: - Schedule next appointment in two weeks for continued monitoring and support 12/25/2024 Generalized anxiety disorder (ICD-10 - F41.1) 1. Improved mood and stability - Patient reports significant improvement in mood and overall stability due to concrete steps taken towards educational goals, including enrolling in classes and planning for future coursework. - Patient expresses feeling very good recently and notes a strong shift in mindset. - Contributing factors include increased engagement at work, reduced stress about daily tasks, and a more accepting attitude towards life's uncertainties. - Patient demonstrates improved coping skills and a more balanced perspective on life events. 2. Treatment Plan for Mood and Stability - Encourage continued engagement in educational pursuits and work activities - Practice savoring positive experiences using all five senses to reinforce and maintain improved mood - Transition to bi-weekly therapy sessions to support ongoing progress - Schedule next appointment in two weeks 3. Residual anxiety management - Patient reports persistent thoughts about potential negative events disrupting progress, though notes these thoughts are less distressing than in the past - Demonstrates increased resilience and ability to manage these thoughts without significant emotional distress - Continue to monitor anxiety symptoms and their impact on daily functioning - Reinforce use of cognitive-behaviora l techniques to manage anxious thoughts - Explore and strengthen coping strategies for dealing with uncertainty 4. Interpersonal relationships - Reports renewed contact with a significant other and expresses a balanced approach to this relationship - Demonstrates improved self-awareness and emotional regulation - Notes comfort with the current state of the relationship regardless of outcome - Encourage continued self-reflection and boundary-setting in relationships - Support patient in maintaining a balanced perspective on relationship outcomes Follow-up: - Schedule next appointment in two weeks for continued monitoring and support 01/08/2025 Major depressive disorder, single episode, severe without psychotic features (ICD-10 - F32.2) 1. Difficulty with autonomous decision-making - Reports struggling to make decisions independently, often seeking validation from others, particularly mother - Behavior has been noticed and commented on by brother - Expresses awareness that this tendency may be problematic - Shows willingness to work on self-validation 2. Ambivalence about romantic relationships - Reports fluctuating feelings about being in a romantic relationship - Expresses comfort with being single at present - Acknowledges conflicting emotions about potential future relationships - May be related to personal growth and increased self-awareness Follow-up: - Schedule follow-up appointment to monitor progress and continue working on identified issues 01/08/2025 Generalized anxiety disorder (ICD-10 - F41.1) 1. Difficulty with autonomous decision-making - Reports struggling to make decisions independently, often seeking validation from others, particularly mother - Behavior has been noticed and commented on by brother - Expresses awareness that this tendency may be problematic - Shows willingness to work on self-validation 2. Ambivalence about romantic relationships - Reports fluctuating feelings about being in a romantic relationship - Expresses comfort with being single at present - Acknowledges conflicting emotions about potential future relationships - May be related to personal growth and increased self-awareness Follow-up: - Schedule follow-up appointment to monitor progress and continue working on identified issues 01/22/2025 Major depressive disorder, single episode, severe without psychotic features (ICD-10 - F32.2) 1. Relationship anxiety and attachment concerns - Patient reports ongoing anxiety and insecurity in current relationship, particularly when partner is busy or unresponsive. - Demonstrates cognitive distortions such as catastrophizing and jumping to conclusions when faced with perceived rejection or lack of communication. - Acknowledges relationship is progressing slowly, viewing it as potentially positive but struggling with impatience. - Expresses confusion about feelings and boundaries regarding intimacy, indicating need for further exploration and self-understanding. Plan: - Continue challenging attachment-related cognitive distortions using Cognitive Behavioral Therapy techniques. - Explore and develop healthy communication strategies within relationships. - Work on building self-trust and confidence in setting and maintaining personal boundaries. - Practice assertiveness and boundary-setting skills in various life contexts to generalize to intimate relationships. - Encourage ongoing self-reflection on feelings about love and commitment. 2. Difficulty with boundary-setting and self-advocacy - Patient reports history of difficulty saying no and setting boundaries, particularly in sexual situations. - Pattern has led to uncomfortable or unwanted experiences in the past. - Expresses desire to improve self-control and ability to advocate for herself. - Recent traumatic experience from a couple of months ago may be contributing to current confusion and hesitation around intimacy. - Demonstrates insight into need to build trust with herself and improve capacity to set and maintain boundaries. Plan: - Implement role-playing exercises to practice boundary-setting in various scenarios. - Develop a personalized stoplight system for identifying and communicating comfort levels in intimate situations. - Explore connection between past experiences and current boundary-setting challenges. - Encourage journaling to track progress in self-advocacy and boundary-setting. - Support patient's decision to practice abstinence as a means of developing self-trust and clearer boundaries. 01/22/2025 Generalized anxiety disorder (ICD-10 - F41.1) 1. Relationship anxiety and attachment concerns - Patient reports ongoing anxiety and insecurity in current relationship, particularly when partner is busy or unresponsive. - Demonstrates cognitive distortions such as catastrophizing and jumping to conclusions when faced with perceived rejection or lack of communication. - Acknowledges relationship is progressing slowly, viewing it as potentially positive but struggling with impatience. - Expresses confusion about feelings and boundaries regarding intimacy, indicating need for further exploration and self-understanding. Plan: - Continue challenging attachment-related cognitive distortions using Cognitive Behavioral Therapy techniques. - Explore and develop healthy communication strategies within relationships. - Work on building self-trust and confidence in setting and maintaining personal boundaries. - Practice assertiveness and boundary-setting skills in various life contexts to generalize to intimate relationships. - Encourage ongoing self-reflection on feelings about love and commitment. 2. Difficulty with boundary-setting and self-advocacy - Patient reports history of difficulty saying no and setting boundaries, particularly in sexual situations. - Pattern has led to uncomfortable or unwanted experiences in the past. - Expresses desire to improve self-control and ability to advocate for herself. - Recent traumatic experience from a couple of months ago may be contributing to current confusion and hesitation around intimacy. - Demonstrates insight into need to build trust with herself and improve capacity to set and maintain boundaries. Plan: - Implement role-playing exercises to practice boundary-setting in various scenarios. - Develop a personalized stoplight system for identifying and communicating comfort levels in intimate situations. - Explore connection between past experiences and current boundary-setting challenges. - Encourage journaling to track progress in self-advocacy and boundary-setting. - Support patient's decision to practice abstinence as a means of developing self-trust and clearer boundaries. 04/07/2025 Major depressive disorder, single episode, severe without psychotic features (ICD-10 - F32.2) Relationship and Dating Concerns Assessment: Linnea reports being in a new relationship with Paras, which she describes as good but also a source of some anxiety. She expresses nervousness about introducing Paras to family and friends, indicating potential underlying insecurities or fears related to relationship progression. Linnea mentions taking things slow and being patient, which suggests a cautious approach to the relationship as she continues to address any underlying insecure attachment concerns. Plan: - Continue to explore and process feelings about the new relationship in therapy sessions - Discuss strategies for managing anxiety related to introducing partner to family and friends - Encourage open communication with partner about relationship pace and expectations Family Dynamics and Sibling Support Assessment: Linnea reports ongoing family issues, particularly concerning her youngest brother's relationship with his father. The brother has experienced manipulation and emotional abuse from his father, including interference with therapy and threats related to spending time with family members. Recent positive developments include improved communication between Linnea's mother and brother, and the brother's willingness to consider genuine therapy after understanding its purpose. The situation appears to be causing stress for Linnea as she navigates supporting her siblings while managing her own emotions. Plan: - Continue to provide support and guidance for Linnea in managing family dynamics - Discuss strategies for supporting siblings without becoming overwhelmed - Explore Linnea's feelings about her role in the family situation - Provide resources for adolescent therapists in the area Work-related Stress and HIPAA Violation Assessment: Linnea experienced significant stress due to a HIPAA violation at work involving misdirected packages. Although the incident was not considered a major violation by the IRB, it caused Linnea considerable anxiety, including fears of job loss and episodes of crying. The situation was exacerbated by her boss's absence and her inability to schedule a therapy session due to her busy schedule. This incident highlights Linnea's tendency to become overwhelmed by work-related stressors and her difficulty in prioritizing self-care during high-stress periods. Plan: - Process emotions related to the HIPAA violation incident - Develop strategies for managing work-related stress and anxiety - Discuss importance of prioritizing mental health and self-care during stressful periods - Explore techniques for setting boundaries and asking for support when needed Emotional Regulation Assessment: Linnea reports experiencing small instances of frustration or annoyance that make her want to stop everything. However, she indicates being able to move past these feelings most of the time. This suggests some difficulty with emotional regulation, but also demonstrates resilience and coping skills. Linnea's tendency to quickly get over grudges may be a positive coping mechanism, but could also potentially lead to unresolved issues if not properly addressed. Plan: - Continue to monitor and discuss instances of frustration or annoyance - Explore and reinforce effective coping strategies for managing intense emotions - Discuss the balance between letting go of grudges and addressing underlying issues 04/07/2025 Generalized anxiety disorder (ICD-10 - F41.1) Relationship and Dating Concerns Assessment: Linnea reports being in a new relationship with Paras, which she describes as good but also a source of some anxiety. She expresses nervousness about introducing Paras to family and friends, indicating potential underlying insecurities or fears related to relationship progression. Linnea mentions taking things slow and being patient, which suggests a cautious approach to the relationship as she continues to address any underlying insecure attachment concerns. Plan: - Continue to explore and process feelings about the new relationship in therapy sessions - Discuss strategies for managing anxiety related to introducing partner to family and friends - Encourage open communication with partner about relationship pace and expectations Family Dynamics and Sibling Support Assessment: Linnea reports ongoing family issues, particularly concerning her youngest brother's relationship with his father. The brother has experienced manipulation and emotional abuse from his father, including interference with therapy and threats related to spending time with family members. Recent positive developments include improved communication between Linnea's mother and brother, and the brother's willingness to consider genuine therapy after understanding its purpose. The situation appears to be causing stress for Linnea as she navigates supporting her siblings while managing her own emotions. Plan: - Continue to provide support and guidance for Linnea in managing family dynamics - Discuss strategies for supporting siblings without becoming overwhelmed - Explore Linnea's feelings about her role in the family situation - Provide resources for adolescent therapists in the area Work-related Stress and HIPAA Violation Assessment: Linnea experienced significant stress due to a HIPAA violation at work involving misdirected packages. Although the incident was not considered a major violation by the IRB, it caused Linnea considerable anxiety, including fears of job loss and episodes of crying. The situation was exacerbated by her boss's absence and her inability to schedule a therapy session due to her busy schedule. This incident highlights Linnea's tendency to become overwhelmed by work-related stressors and her difficulty in prioritizing self-care during high-stress periods. Plan: - Process emotions related to the HIPAA violation incident - Develop strategies for managing work-related stress and anxiety - Discuss importance of prioritizing mental health and self-care during stressful periods - Explore techniques for setting boundaries and asking for support when needed Emotional Regulation Assessment: Linnea reports experiencing small instances of frustration or annoyance that make her want to stop everything. However, she indicates being able to move past these feelings most of the time. This suggests some difficulty with emotional regulation, but also demonstrates resilience and coping skills. Linnea's tendency to quickly get over grudges may be a positive coping mechanism, but could also potentially lead to unresolved issues if not properly addressed. Plan: - Continue to monitor and discuss instances of frustration or annoyance - Explore and reinforce effective coping strategies for managing intense emotions - Discuss the balance between letting go of grudges and addressing underlying issues 05/06/2025 Major depressive disorder, recurrent, mild (ICD-10 - F33.0) Gastrointestinal distress Assessment: Patient reports persistent gastrointestinal symptoms for the past week, resulting in multiple ER visits and significant weakness due to reduced food intake. Symptoms include vomiting and abdominal pain. ER interventions have included administration of Zofran and morphine for symptom management. Patient has a medical appointment scheduled for further evaluation. There is consideration of cannabis hyperemesis syndrome as a potential contributing factor, given the patient's history of cannabis use, particularly with vaping and dab pens. Plan: - Attend scheduled medical appointment for further evaluation of gastrointestinal symptoms - Consider reducing or cessation of cannabis use, particularly vaping and dab pens - If continuing cannabis use, switch to flower form as it may be less concentrated - Monitor response to any prescribed medications or treatments from medical provider Occupational stress and dissatisfaction Assessment: Patient expresses strong desire to find new employment due to current job dissatisfaction and stress. 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 The patient's current work environment appears to be contributing to her overall stress levels and may be impacting her mental health. 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 The breakup appears to have been amicable, with the ex-partner citing concerns about time commitment. Patient expresses sadness but demonstrates insight into the situation and appreciation for the ex-partner's consideration. This experience represents growth in the patient's ability to engage in relationships, as previous concerns about avoidance and attachment issues have improved. Plan: - Continue to process emotions related to the recent breakup - Reinforce positive coping strategies and personal growth - Encourage maintenance of social connections and engagement in enjoyable activities Cannabis use and cognitive concerns Assessment: Patient reports regular cannabis use, with recent transition from vaping to flower form. She expresses concerns about short-term memory difficulties and cognitive fog, which persist even when not under the influence. There is a family history of dementia, which has heightened the patient's awareness of potential cognitive impacts. Plan: - Educate on potential cognitive effects of cannabis use, including impacts on memory and cognition - Discuss harm reduction strategies if patient chooses to continue cannabis use - Monitor cognitive symptoms and their relationship to cannabis use patterns - Consider formal cognitive assessment if symptoms persist or worsen 05/06/2025 Generalized anxiety disorder (ICD-10 - F41.1) Gastrointestinal distress Assessment: Patient reports persistent gastrointestinal symptoms for the past week, resulting in multiple ER visits and significant weakness due to reduced food intake. Symptoms include vomiting and abdominal pain. ER interventions have included administration of Zofran and morphine for symptom management. Patient has a medical appointment scheduled for further evaluation. There is consideration of cannabis hyperemesis syndrome as a potential contributing factor, given the patient's history of cannabis use, particularly with vaping and dab pens. Plan: - Attend scheduled medical appointment for further evaluation of gastrointestinal symptoms - Consider reducing or cessation of cannabis use, particularly vaping and dab pens - If continuing cannabis use, switch to flower form as it may be less concentrated - Monitor response to any prescribed medications or treatments from medical provider Occupational stress and dissatisfaction Assessment: Patient expresses strong desire to find new employment due to current job dissatisfaction and stress. 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 The patient's current work environment appears to be contributing to her overall stress levels and may be impacting her mental health. 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 The breakup appears to have been amicable, with the ex-partner citing concerns about time commitment. Patient expresses sadness but demonstrates insight into the situation and appreciation for the ex-partner's consideration. This experience represents growth in the patient's ability to engage in relationships, as previous concerns about avoidance and attachment issues have improved. Plan: - Continue to process emotions related to the recent breakup - Reinforce positive coping strategies and personal growth - Encourage maintenance of social connections and engagement in enjoyable activities Cannabis use and cognitive concerns Assessment: Patient reports regular cannabis use, with recent transition from vaping to flower form. She expresses concerns about short-term memory difficulties and cognitive fog, which persist even when not under the influence. There is a family history of dementia, which has heightened the patient's awareness of potential cognitive impacts. Plan: - Educate on potential cognitive effects of cannabis use, including impacts on memory and cognition - Discuss harm reduction strategies if patient chooses to continue cannabis use - Monitor cognitive symptoms and their relationship to cannabis use patterns - Consider formal cognitive assessment if symptoms persist or worsen 06/18/2025 Major depressive disorder, recurrent, mild (ICD-10 - F33.0) Interpersonal relationship difficulties Assessment: Patient reports experiencing challenges in maintaining relationships with friends and family members due to differing values and beliefs, particularly regarding race and rastafari. She expresses feeling disconnected from some friends after noticing their social media posts and realizing the extent of their differing views. Patient attended a recent social event where she felt a desire for a more diverse friend group. She also describes ongoing conflicts with her father, which have recently led to a mutual interest in family therapy. Patient demonstrates insight into the need for addressing these relationship issues rather than avoiding them. Plan: - Explore options for family therapy with father - Provided recommendations for local therapy practices ([facility]) - Suggested looking for therapists with BROADCAST PROGRAM DIRECTOR credentials - Discuss strategies for setting boundaries and managing relationships with friends who have differing values - Encourage patient to continue seeking out diverse social connections - Follow up in one month (07/16) at 4:00 PM via virtual appointment Tenriism identity exploration Assessment: Patient expresses a desire to maintain her Caodaism beliefs while also developing a broader moral compass. She reports finding comfort and hope in her jehovah's witness beliefs but is also engaging with friends who have different jehovah's witness perspectives, including atheism. Patient demonstrates awareness of the potential for jehovah's witness beliefs to climate change analyst time, as exemplified by her friend's transition to atheism, and expresses concern about potentially losing her robert. Plan: - Explore patient's jehovah's witness beliefs and their importance in her life - Discuss strategies for maintaining personal beliefs while engaging with diverse perspectives - Encourage patient to seek out supportive Caodaism friends who align with her evolving values - Encourage exploration of area communities including [facility] and [facility]. 06/18/2025 Generalized anxiety disorder (ICD-10 - F41.1) Interpersonal relationship difficulties Assessment: Patient reports experiencing challenges in maintaining relationships with friends and family members due to differing values and beliefs, particularly regarding race and rastafari. She expresses feeling disconnected from some friends after noticing their social media posts and realizing the extent of their differing views. Patient attended a recent social event where she felt a desire for a more diverse friend group. She also describes ongoing conflicts with her father, which have recently led to a mutual interest in family therapy. Patient demonstrates insight into the need for addressing these relationship issues rather than avoiding them. Plan: - Explore options for family therapy with father - Provided recommendations for local therapy practices ([facility], [facility]) - Suggested looking for therapists with BROADCAST PROGRAM DIRECTOR credentials - Discuss strategies for setting boundaries and managing relationships with friends who have differing values - Encourage patient to continue seeking out diverse social connections - Follow up in one month (07/16) at 4:00 PM via virtual appointment Tenriism identity exploration Assessment: Patient expresses a desire to maintain her Caodaism beliefs while also developing a broader moral compass. She reports finding comfort and hope in her jehovah's witness beliefs but is also engaging with friends who have different jehovah's witness perspectives, including atheism. Patient demonstrates awareness of the potential for jehovah's witness beliefs to climate change analyst time, as exemplified by her friend's transition to atheism, and expresses concern about potentially losing her robert. Plan: - Explore patient's jehovah's witness beliefs and their importance in her life - Discuss strategies for maintaining personal beliefs while engaging with diverse perspectives - Encourage patient to seek out supportive Caodaism friends who align with her evolving values - Encourage exploration of area communities including [facility] and [facility]. 02/12/2025 Major depressive disorder, single episode, severe without psychotic features (ICD-10 - F32.2) Anxiety with somatic symptoms Assessment: Patient reports ongoing gastrointestinal issues, including a recent stomach episode that required leaving work early. These somatic symptoms appear to be related to her anxiety disorder. The patient's primary care physician has recently increased her anxiety medication dosage, suggesting that while circumstances have improved, the underlying anxiety may still require management. The gastrointestinal symptoms are significantly impacting her work performance, forcing her to leave early or take time off. Plan: - Continue anxiety medication as prescribed by primary care physician - Explore stress management techniques to address work-related anxiety Financial stress and medical debt Assessment: Patient expresses significant stress related to medical debt, which is exacerbating her anxiety. The financial burden is affecting her ability to focus on her health, as she reports being preoccupied with costs during medical tests. She is considering seeking additional employment to address her debt more quickly, which may potentially increase her overall stress levels. Plan: - Discuss strategies for managing financial stress - Explore options for additional income sources that do not excessively increase overall stress - Consider referral to financial counseling or resources for medical debt management Work-related stress and accommodation needs Assessment: Patient reports difficulty maintaining regular work hours due to her health issues. She has requested time off and the possibility of remote work to accommodate her unpredictable symptoms. This situation is causing additional stress and may be impacting her job security and financial stability. Plan: - Discuss workplace accommodation strategies - Provide support in communicating needs to employer, if necessary - Explore time management techniques to balance work responsibilities with health needs Family conflict and interpersonal stress Assessment: Patient reports being caught in the middle of parental conflicts, which is causing additional stress. She demonstrates insight into both parents' perspectives but feels burdened by their communication issues. Patient has developed some coping mechanisms, such as disengaging from arguments when feeling overwhelmed, but continues to experience stress from family dynamics. Plan: - Reinforce positive coping strategies for managing family conflicts - Explore boundary-setting techniques to reduce emotional burden from parental disputes - Discuss strategies for maintaining neutrality in parental conflicts while preserving relationships - Continue to be open to healthy affection from significant other to challenge previous concerns with insecure attachment 02/12/2025 Generalized anxiety disorder (ICD-10 - F41.1) Anxiety with somatic symptoms Assessment: Patient reports ongoing gastrointestinal issues, including a recent stomach episode that required leaving work early. These somatic symptoms appear to be related to her anxiety disorder. The patient's primary care physician has recently increased her anxiety medication dosage, suggesting that while circumstances have improved, the underlying anxiety may still require management. The gastrointestinal symptoms are significantly impacting her work performance, forcing her to leave early or take time off. Plan: - Continue anxiety medication as prescribed by primary care physician - Explore stress management techniques to address work-related anxiety Financial stress and medical debt Assessment: Patient expresses significant stress related to medical debt, which is exacerbating her anxiety. The financial burden is affecting her ability to focus on her health, as she reports being preoccupied with costs during medical tests. She is considering seeking additional employment to address her debt more quickly, which may potentially increase her overall stress levels. Plan: - Discuss strategies for managing financial stress - Explore options for additional income sources that do not excessively increase overall stress - Consider referral to financial counseling or resources for medical debt management Work-related stress and accommodation needs Assessment: Patient reports difficulty maintaining regular work hours due to her health issues. She has requested time off and the possibility of remote work to accommodate her unpredictable symptoms. This situation is causing additional stress and may be impacting her job security and financial stability. Plan: - Discuss workplace accommodation strategies - Provide support in communicating needs to employer, if necessary - Explore time management techniques to balance work responsibilities with health needs Family conflict and interpersonal stress Assessment: Patient reports being caught in the middle of parental conflicts, which is causing additional stress. She demonstrates insight into both parents' perspectives but feels burdened by their communication issues. Patient has developed some coping mechanisms, such as disengaging from arguments when feeling overwhelmed, but continues to experience stress from family dynamics. Plan: - Reinforce positive coping strategies for managing family conflicts - Explore boundary-setting techniques to reduce emotional burden from parental disputes - Discuss strategies for maintaining neutrality in parental conflicts while preserving relationships - Continue to be open to healthy affection from significant other to challenge previous concerns with insecure attachment 02/12/2025 Encounter for screening for depression (ICD-10 - Z13.31) Anxiety with somatic symptoms Assessment: Patient reports ongoing gastrointestinal issues, including a recent stomach episode that required leaving work early. These somatic symptoms appear to be related to her anxiety disorder. The patient's primary care physician has recently increased her anxiety medication dosage, suggesting that while circumstances have improved, the underlying anxiety may still require management. The gastrointestinal symptoms are significantly impacting her work performance, forcing her to leave early or take time off. Plan: - Continue anxiety medication as prescribed by primary care physician - Explore stress management techniques to address work-related anxiety Financial stress and medical debt Assessment: Patient expresses significant stress related to medical debt, which is exacerbating her anxiety. The financial burden is affecting her ability to focus on her health, as she reports being preoccupied with costs during medical tests. She is considering seeking additional employment to address her debt more quickly, which may potentially increase her overall stress levels. Plan: - Discuss strategies for managing financial stress - Explore options for additional income sources that do not excessively increase overall stress - Consider referral to financial counseling or resources for medical debt management Work-related stress and accommodation needs Assessment: Patient reports difficulty maintaining regular work hours due to her health issues. She has requested time off and the possibility of remote work to accommodate her unpredictable symptoms. This situation is causing additional stress and may be impacting her job security and financial stability. Plan: - Discuss workplace accommodation strategies - Provide support in communicating needs to employer, if necessary - Explore time management techniques to balance work responsibilities with health needs Family conflict and interpersonal stress Assessment: Patient reports being caught in the middle of parental conflicts, which is causing additional stress. She demonstrates insight into both parents' perspectives but feels burdened by their communication issues. Patient has developed some coping mechanisms, such as disengaging from arguments when feeling overwhelmed, but continues to experience stress from family dynamics. Plan: - Reinforce positive coping strategies for managing family conflicts - Explore boundary-setting techniques to reduce emotional burden from parental disputes - Discuss strategies for maintaining neutrality in parental conflicts while preserving relationships - Continue to be open to healthy affection from significant other to challenge previous concerns with insecure attachment 04/07/2025 Encounter for screening for depression (ICD-10 - Z13.31) Relationship and Dating Concerns Assessment: Linnea reports being in a new relationship with Paras, which she describes as good but also a source of some anxiety. She expresses nervousness about introducing Paras to family and friends, indicating potential underlying insecurities or fears related to relationship progression. Linnea mentions taking things slow and being patient, which suggests a cautious approach to the relationship as she continues to address any underlying insecure attachment concerns. Plan: - Continue to explore and process feelings about the new relationship in therapy sessions - Discuss strategies for managing anxiety related to introducing partner to family and friends - Encourage open communication with partner about relationship pace and expectations Family Dynamics and Sibling Support Assessment: Linnea reports ongoing family issues, particularly concerning her youngest brother's relationship with his father. The brother has experienced manipulation and emotional abuse from his father, including interference with therapy and threats related to spending time with family members. Recent positive developments include improved communication between Linnea's mother and brother, and the brother's willingness to consider genuine therapy after understanding its purpose. The situation appears to be causing stress for Linnea as she navigates supporting her siblings while managing her own emotions. Plan: - Continue to provide support and guidance for Linnea in managing family dynamics - Discuss strategies for supporting siblings without becoming overwhelmed - Explore Linnea's feelings about her role in the family situation - Provide resources for adolescent therapists in the area Work-related Stress and HIPAA Violation Assessment: Linnea experienced significant stress due to a HIPAA violation at work involving misdirected packages. Although the incident was not considered a major violation by the IRB, it caused Linnea considerable anxiety, including fears of job loss and episodes of crying. The situation was exacerbated by her boss's absence and her inability to schedule a therapy session due to her busy schedule. This incident highlights Linnea's tendency to become overwhelmed by work-related stressors and her difficulty in prioritizing self-care during high-stress periods. Plan: - Process emotions related to the HIPAA violation incident - Develop strategies for managing work-related stress and anxiety - Discuss importance of prioritizing mental health and self-care during stressful periods - Explore techniques for setting boundaries and asking for support when needed Emotional Regulation Assessment: Linnea reports experiencing small instances of frustration or annoyance that make her want to stop everything. However, she indicates being able to move past these feelings most of the time. This suggests some difficulty with emotional regulation, but also demonstrates resilience and coping skills. Linnea's tendency to quickly get over grudges may be a positive coping mechanism, but could also potentially lead to unresolved issues if not properly addressed. Plan: - Continue to monitor and discuss instances of frustration or annoyance - Explore and reinforce effective coping strategies for managing intense emotions - Discuss the balance between letting go of grudges and addressing underlying issues 05/06/2025 Cannabis use, unspecified, uncomplicated (ICD-10 - F12.90) Gastrointestinal distress Assessment: Patient reports persistent gastrointestinal symptoms for the past week, resulting in multiple ER visits and significant weakness due to reduced food intake. Symptoms include vomiting and abdominal pain. ER interventions have included administration of Zofran and morphine for symptom management. Patient has a medical appointment scheduled for further evaluation. There is consideration of cannabis hyperemesis syndrome as a potential contributing factor, given the patient's history of cannabis use, particularly with vaping and dab pens. Plan: - Attend scheduled medical appointment for further evaluation of gastrointestinal symptoms - Consider reducing or cessation of cannabis use, particularly vaping and dab pens - If continuing cannabis use, switch to flower form as it may be less concentrated - Monitor response to any prescribed medications or treatments from medical provider Occupational stress and dissatisfaction Assessment: Patient expresses strong desire to find new employment due to current job dissatisfaction and stress. 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 The patient's current work environment appears to be contributing to her overall stress levels and may be impacting her mental health. 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 The breakup appears to have been amicable, with the ex-partner citing concerns about time commitment. Patient expresses sadness but demonstrates insight into the situation and appreciation for the ex-partner's consideration. This experience represents growth in the patient's ability to engage in relationships, as previous concerns about avoidance and attachment issues have improved. Plan: - Continue to process emotions related to the recent breakup - Reinforce positive coping strategies and personal growth - Encourage maintenance of social connections and engagement in enjoyable activities Cannabis use and cognitive concerns Assessment: Patient reports regular cannabis use, with recent transition from vaping to flower form. She expresses concerns about short-term memory difficulties and cognitive fog, which persist even when not under the influence. There is a family history of dementia, which has heightened the patient's awareness of potential cognitive impacts. Plan: - Educate on potential cognitive effects of cannabis use, including impacts on memory and cognition - Discuss harm reduction strategies if patient chooses to continue cannabis use - Monitor cognitive symptoms and their relationship to cannabis use patterns - Consider formal cognitive assessment if symptoms persist or worsen 01/22/2025 Encounter for screening for depression (ICD-10 - Z13.31) 1. Relationship anxiety and attachment concerns - Patient reports ongoing anxiety and insecurity in current relationship, particularly when partner is busy or unresponsive. - Demonstrates cognitive distortions such as catastrophizing and jumping to conclusions when faced with perceived rejection or lack of communication. - Acknowledges relationship is progressing slowly, viewing it as potentially positive but struggling with impatience. - Expresses confusion about feelings and boundaries regarding intimacy, indicating need for further exploration and self-understanding. Plan: - Continue challenging attachment-related cognitive distortions using Cognitive Behavioral Therapy techniques. - Explore and develop healthy communication strategies within relationships. - Work on building self-trust and confidence in setting and maintaining personal boundaries. - Practice assertiveness and boundary-setting skills in various life contexts to generalize to intimate relationships. - Encourage ongoing self-reflection on feelings about love and commitment. 2. Difficulty with boundary-setting and self-advocacy - Patient reports history of difficulty saying no and setting boundaries, particularly in sexual situations. - Pattern has led to uncomfortable or unwanted experiences in the past. - Expresses desire to improve self-control and ability to advocate for herself. - Recent traumatic experience from a couple of months ago may be contributing to current confusion and hesitation around intimacy. - Demonstrates insight into need to build trust with herself and improve capacity to set and maintain boundaries. Plan: - Implement role-playing exercises to practice boundary-setting in various scenarios. - Develop a personalized stoplight system for identifying and communicating comfort levels in intimate situations. - Explore connection between past experiences and current boundary-setting challenges. - Encourage journaling to track progress in self-advocacy and boundary-setting. - Support patient's decision to practice abstinence as a means of developing self-trust and clearer boundaries. 12/25/2024 Encounter for screening for depression (ICD-10 - Z13.31) 1. Improved mood and stability - Patient reports significant improvement in mood and overall stability due to concrete steps taken towards educational goals, including enrolling in classes and planning for future coursework. - Patient expresses feeling very good recently and notes a strong shift in mindset. - Contributing factors include increased engagement at work, reduced stress about daily tasks, and a more accepting attitude towards life's uncertainties. - Patient demonstrates improved coping skills and a more balanced perspective on life events. 2. Treatment Plan for Mood and Stability - Encourage continued engagement in educational pursuits and work activities - Practice savoring positive experiences using all five senses to reinforce and maintain improved mood - Transition to bi-weekly therapy sessions to support ongoing progress - Schedule next appointment in two weeks 3. Residual anxiety management - Patient reports persistent thoughts about potential negative events disrupting progress, though notes these thoughts are less distressing than in the past - Demonstrates increased resilience and ability to manage these thoughts without significant emotional distress - Continue to monitor anxiety symptoms and their impact on daily functioning - Reinforce use of cognitive-behaviora l techniques to manage anxious thoughts - Explore and strengthen coping strategies for dealing with uncertainty 4. Interpersonal relationships - Reports renewed contact with a significant other and expresses a balanced approach to this relationship - Demonstrates improved self-awareness and emotional regulation - Notes comfort with the current state of the relationship regardless of outcome - Encourage continued self-reflection and boundary-setting in relationships - Support patient in maintaining a balanced perspective on relationship outcomes Follow-up: - Schedule next appointment in two weeks for continued monitoring and support 12/17/2024 Encounter for screening for depression (ICD-10 - Z13.31) 1. Anxiety related to life transitions Assessment: - Reports experiencing anxiety related to multiple life transitions, including housing changes, financial planning, and educational pursuits - Expresses feeling overwhelmed by the numerous steps required to address each area of concern - Notes recent improvement in outlook, feeling significantly more optimistic in the past few days - Demonstrates insight into emotional state and has taken proactive steps by meeting with financial advisors and academic counselors Plan: - Continue to encourage breaking down overwhelming tasks into manageable categories - Reinforce positive coping strategies for managing anxiety during transitions - Discuss strategies for maintaining optimism while acknowledging the complexity of current life changes - Follow up on progress with housing, financial, and educational plans in next session 2. Interpersonal challenges and emotional regulation Assessment: - Exhibits difficulty with emotional regulation, particularly in romantic relationships - Reports crying frequently during serious conversations with potential partner - Expresses concern about appearing manipulative unintentionally - Demonstrates awareness of tendency to distance self from romantic interests as a coping mechanism - Notes challenges in articulating thoughts during confrontations, often becoming quiet or apologetic Plan: - Explore and practice effective communication strategies for expressing emotions in relationships - Discuss healthy boundaries and coping mechanisms for managing emotional intensity in romantic situations - Encourage use of cope ahead skill to address anxiety about potential relationship scenarios - Consider introducing relationship-buildi ng tools to facilitate communication and connection 3. Self-doubt and fear of commitment Assessment: - Expresses self-doubt about ability to be a good partner in a relationship, citing lack of experience - Reports anxiety about introducing partners to family and managing expectations of committed relationship - Indicates fear of getting hurt, stating I feel like people don't actually last - Demonstrates desire to overcome fears, recognizing potential regret in not pursuing relationship Plan: - Explore beliefs about relationships and identify any cognitive distortions - Develop strategies for building self-confidence in romantic relationships - Discuss realistic expectations for relationship development and pacing - Encourage gradual exposure to relationship experiences to build comfort and confidence 12/08/2024 Encounter for screening for depression (ICD-10 - Z13.31) 1. Anxiety and stress related to school enrollment and work-life balance Assessment: - Patient expresses significant anxiety and stress surrounding desire to enroll in school and manage current work schedule - Reports feeling tired of climbing and describes a sense of stagnation in personal growth - Anxiety exacerbated by prolonged waiting period for school enrollment - Reports difficulty with current work schedule, describing it as exhausting and repetitive - Expresses desire for more flexibility or different schedule, indicating current 9-to-5 routine impacts energy levels Plan: - Explore strategies for managing anxiety related to school enrollment process - Discuss time management techniques to improve work-life balance - Encourage patient to continue pursuing school enrollment while setting realistic expectations - Explore potential career options or work arrangements that align better with patient's needs - Recommend sleep study follow-up to address potential sleep-related issues 2. Relationship concerns and emotional processing post-breakup Assessment: - Experiencing ongoing emotional distress following recent breakup - Reports conflicting feelings, including missing ex-partner while recognizing relationship's negative aspects - Describes intense emotional reaction to receiving text message from ex-partner - Expresses difficulty ending relationships, even when recognized as unhealthy - Reports feeling overwhelmed by prospect of dating again Plan: - Continue to process emotions related to the recent breakup - Explore and challenge patterns of relationship dependency - Develop strategies for setting and maintaining healthy boundaries in relationships - Discuss healthy approaches to dating and building new relationships - Encourage self-reflection on personal values and relationship goals 3. Family conflict and support system concerns Assessment: - Reports ongoing family conflict, particularly involving stepfather and younger siblings - Describes stepfather's behavior as manipulative and potentially narcissistic - Reports history of growing up in restrictive jehovah's witness environment - Expresses frustration with brother's lack of understanding regarding situation with stepfather Plan: - Explore strategies for setting boundaries with family members - Discuss ways to support siblings while maintaining own emotional well-being - Encourage development of support network outside of family - Address potential impact of jehovah's witness upbringing on current relationship patterns - Consider family therapy or mediation options if appropriate and desired Follow-up: - Schedule follow-up appointment to monitor progress and continue working on identified issues 01/08/2025 Encounter for screening for depression (ICD-10 - Z13.31) 1. Difficulty with autonomous decision-making - Reports struggling to make decisions independently, often seeking validation from others, particularly mother - Behavior has been noticed and commented on by brother - Expresses awareness that this tendency may be problematic - Shows willingness to work on self-validation 2. Ambivalence about romantic relationships - Reports fluctuating feelings about being in a romantic relationship - Expresses comfort with being single at present - Acknowledges conflicting emotions about potential future relationships - May be related to personal growth and increased self-awareness Follow-up: - Schedule follow-up appointment to monitor progress and continue working on identified issues Plan Of Treatment Next Appt Details Provider Name:Yue Rama torrez, 07/16/2025 04:00:00 PM, [address], [address], [place], [address], Insurance Providers Payer Name Payer Address Payer Phone Subscriber Number Group Number Insured Name Patient Relationship to Insured Coverage Start Date Coverage End Date [address] [place] [id number] LINNEA CHAN Self - patient is the insured Medical (General) History Medical History History ICD Code abdominal aortic aneurysm: No atrial fibrillation: No chronic fatigue syndrome: No essential tremor: No hyperlipidemia: No hypertension: No Parkinson's disease: No restless leg syndrome: No stroke: No subdural hematoma: No type 1 diabetes mellitus: No type 2 diabetes mellitus: No vitamin B12 deficiency: No vitamin D deficiency: No
--- NOTE | 2025-08-02 09:20 | P.SLEEP_ITS ---
Sleep Study Date of Study: 07/06/25 Ordering Provider: Suraj Crawley APRN Interpreting Physician: Janell Rankin DO Sleep Study Type: Polysomnogram Height: 1.68 m Weight: 63.503 kg Body Mass Index: 22.6 Neck Circumference (inches): 14 [place]: 11 Reason for Sleep Study Excessive daytime sleepiness Sleep History The patient is a 25-year-old female that had a sleep study ordered by the Pulmonary group for evaluation of sleep apnea. The patient rarely awakens from sleep short of breath. She denies awakening at night with heartburn, belching or cough. She occasionally snores but is never loud enough that others complain. She frequently has trouble sleeping when she has a cold. She rarely wakes up gasping for air throughout the night. She denies having breathing problems at night observed by herself or others. She denies sweating excessively at night. She denies having heart palpitations or irregular heartbeats during the night. She frequently falls asleep during the day but never while driving. She denies cataplexy. She occasionally has trouble at school or work due to sleepiness. She occasionally feels unable to move while waking up or falling asleep. She rarely experiences vivid dreamlike scenes upon awakening or falling asleep. She denies feeling afraid of going to sleep. She rarely has nightmares. She occasionally remembers her dreams. She rarely has thoughts racing through her mind. She occasionally feels sad or depressed. She frequently has anxiety. She denies having muscular tension. She rarely notices parts of her body jerk. She denies kicking during the night. She denies having crawling and aching feelings in her legs and denies having leg pain during the night. She denies grinding her teeth during sleep and denies awakening with morning jaw pain. She denies being bothered by pain during the day and denies being awakened by pain during the night. She occasionally wakes up feeling stiff in the morning. She denies waking up with sore or achy muscles. She denies waking up with pain in the neck, spine and other joints. She goes to bed at 11:00 p.m. on weekdays and at 12:30 a.m. on the weekends. It takes her 10 minutes to fall asleep. She wakes up 2-3 times throughout the night to either urinate or checked the time. She is able to fall back asleep within a few minutes. She wakes up between 7-8 a.m. on weekdays and between 9- 11 a.m. on the weekends. She typically gets 8 hours of sleep per night. She will stay in bed for 20 minutes after waking up in the morning. She currently lives with her mom and 2 siblings. She denies consuming any caffeinated beverages within 2 hours of bedtime. She denies engaging in physical exercise before bedtime. She denies reading and watching television before falling asleep. She will take naps in afternoon or the evening but they are not refreshing. She denies tobacco and alcohol use. She does use an unspecified recreational drug. [facility] Past Medical History Medical History Anxiety Depression Family History Family History Grandparent Breast cancer Father ADHD Sibling ADHD Social History Social History Smoking status: Never smoker Alcohol intake: never Substance use: never Medications Home Medications ?Medication ?Instructions ?Recorded ?Confirmed ?Type melatonin 5 mg capsule mg PO 06/21/20 03/24/25 Hist ory norethindrone acetate 1 mg-ethinyl 1 tablet PO DAILY 0 02/11/25 02/11/25 History estradiol 20 mcg tablet (Junel) omeprazole 40 mg capsule,delayed 40 mg PO DAILY 02/11/25 History release topiramate 50 mg tablet 50 mg PO DAILY 02/11/2501/22 History sertraline 25 mg tablet 50 mg PO DAILY 03/24/2501/22 History Sleep Procedure A full night polysomnogram using the [employer] multi-channel system recorded the standard physiologic parameters including EEG, EOG, submentalis EMG, anterior tibialis EMG, EKG, body position, nasal and oral airflow using na kendall pressure sensor and thermistor.? Respiratory parameters of chest and abdominal movements were recorded with Respiratory Inductance Plethysmography belts. Oxygen saturation was recorded by pulse oximetry. Video monitoring was also performed. Sleep stages, periodic limb movements, and EEG arousals were scored in 30 second epochs according to the criteria of the AASM Scoring Manual. The Apnea-Hypopnea Index was calculated using CMS guidelines for definition of hypopnea with 4% O2 desaturations while scoring respiratory events. Sleep Architecture The total recording time was 440.6 minutes.? The total sleep time was 411.0 minutes. Sleep latency was 12.4 minutes. REM latency was 158.0 minutes. Sleep efficiency was 93.3%. The patient had 24 awakenings for an awakening index of 3.5. Wake after sleep onset time was 17.5 minutes. The patient spent 30.5 minutes, 7.4% of total sleep time in Stage N1. The patient spent 308.5 minutes, 75.1% in Stage N2. The patient spent 52.5 minutes, 12.8% in Stage N3. The patient spent 19.5 minutes, 4.7% in Stage REM sleep. Respiratory Analysis The patient had no respiratory events resulting in an overall Apnea Hypopnea Index of 0. The REM Apnea Hypopnea Index was 0. The NREM Apnea Hypopnea Index was 0. The patient had a Central Apnea Hypopnea Index of 0. There was no evidence of [place] Respirations. Arousals There were 81 total arousals for an arousal index of 11.8. There were 71 spontaneous arousals for an index of 10.4. There were 2 arousals due to respiratory events for an index of 0.3. There were 0 arousals due to periodic limb movements for an index of 0.? There were 8 arousals due to isolated limb movements for an index of 1.2. Periodic Limb Movements The patient had 21 isolated limb movements with an index of 3.1. The patient had 0 periodic limb movements with an index of 0. Patient had a total of 21 limb movements with a total limb movement index of 3.1. Oximetry Data The patient had an average oxygen saturation of 96.7% in sleep with a minimum oxygen saturation of 84.0% and a maximum oxygen saturation of 99.0%. The patient had 1 oxygen desaturations that were 4% or greater resulting in an Oxygen Desaturation Index of 0.1.? The patient spent 5.9 minutes, 1.4% of total sleep time with an oxygen saturation below 88%. Snoring Profile Mild snoring was present intermittently throughout the study, Cardiac Profile The EKG showed normal sinus rhythm.?No arrhythmias or premature beats were seen. The patient had an average pulse rate of 63.6 bpm with a minimum pulse of rate of 45.0 bpm and a maximum pulse rate of 102.0 bpm.? EEG Profile No signs of seizure activity seen. Assessment and Plan Assessment and Plan (1) Excessive daytime sleepiness: Code(s): G47.19 - Other hypersomnia Status: Acute Assessment and Plan: The patient had an overall AHI of 0 with desaturation down to 84%. This is not consistent with sleep-disordered breathing. Data The data obtained during this sleep study is adequate for interpretation. Certification This sleep study has been reviewed by a board certified sleep medicine physician.
[2025-08-02 12:01] VITALS: BMI 22.6
== END 2025-07-07 05:51 | disposition home or self-care (01) ==
PROVIDERS: PCP Internal Medicine; Visit Provider Nurse Practitioner Family
DX: G47.19 Other hypersomnia (principal); R40.0 Somnolence
CPT/HCPCS: 95810